=== PATIENT | female | born 1970 | race Caucasian/White ===

== ENCOUNTER 2017-02-20 06:06 | Emergency (ER) | payer OTHER ==
[~2017-02-20] VITALS: Ht 167.6 cm; Wt 59.0 kg
--- NOTE | 2017-02-20 06:41 | ED SKIN/ALLERGY COMPLAINT ---
History of Present Illness General Chief Complaint: Allergy Symptoms Stated Complaint: ?ALLERGIC REACTION, FACIAL SWELLING Source: patient Exam Limitations: no limitations Vital Signs & Intake/Output Vital Signs & Intake/Output Vital Signs Date Time Temp Pulse Resp B/P B/P Pulse O2 O2 Flow FiO2 Mean Ox Delivery Rate 02/20 0619 99.0 71 18 132/63 99 Room Air Reconcile Medications Famotidine (Pepcid) 20 MG TABLET 1 TAB PO BID URTICARIA Methylprednisolone. (Medrol) 4 MG TAB.DS.PK 1 DP PO AD URTICARIA 6 on day 1 then reduce by one tablet daily until gone Triage Note: PT TO ED WITH COMPLAINTS OF SWELLING TO FACE AND ITCHINESS TO BLE, BUE AND ABDOMEN. PT'S SKIN NOTED TO HAVE RED BLOTCHY AREAS. PT DENIES EATING ANY NEW FOODS OR USING NEW LOTIONS/PERFUMES. PT STATES NEW B12 VITAMINS THAT SHE STARTED 3 WEEKS AGO. Triage Nurses Notes Reviewed? yes Onset: Abrupt Duration: LAST NIGHT Timing: multiple episodes today Severity: mild, moderate Location: generalized Possible Factors: ? POSSIBLE FOOD EXPOSURE No Modifying Factors: none Associated Symptoms: hives HPI: 47-year-old female presents to the ER with chief complaint of itching and rash that started yesterday evening. She was swimming in her in-laws pool yesterday. She ate multiple foods yesterday nothing that she is allergic to. Denies any recent change in products. She has been on high-dose vitamin B12 for the past 3 weeks secondary to neuropathy. Denies any insect bites. No shortness of breath or swallowing difficulties. Past History Travel History Traveled to [place] past 21 day No Medical History Any Pertinent Medical History? see below for history Other Medical Hx: LOW B12 Surgical History Surgical History: non-contributory Psychosocial History What is your primary language Andorran Tobacco Use: Current Daily Use Daily Tobacco Use Amount/Type: => 5 Cigarettes daily ETOH Use: occasional use Illicit Drug Use: denies illicit drug use Family History Hx Contributory? No Review of Systems Review of Systems Constitutional: Denies: chills, fever. EENTM: Reports: no symptoms. Respiratory: Denies: cough, short of breath, wheezing. Cardiovascular: Denies: chest pain. GI: Denies: nausea, vomiting. Genitourinary: Reports: no symptoms. Musculoskeletal: Reports: no symptoms. Skin: Reports: jaundice, rash. Neurological/Psychological: Reports: anxiety. Hematologic/Endocrine: Denies: bruising, bleeding. Immunologic/Allergic: Reports: no symptoms. All Other Systems: Reviewed and Negative Physical Exam Physical Exam General Appearance: alert, awake, anxious, mild distress, thin Head: atraumatic, normal appearance Eyes: Bilateral: normal appearance, PERRL, EOMI. Ears, Nose, Throat: normal pharynx, normal ENT inspection, hearing grossly normal Neck: normal inspection, supple, full range of motion Respiratory: normal breath sounds, chest non-tender, no respiratory distress Cardiovascular: regular rate/rhythm Peripheral Pulses: 2+ radial (R), 2+ radial (L) Gastrointestinal: normal bowel sounds, soft, non-tender Extremities: normal inspection, normal capillary refill, normal range of motion, no edema Neurologic/Psych: no motor/sensory deficits, awake, alert, oriented x 3 Skin: intact, normal color, warm/dry, rash Skin Problem Location: generalized Skin Problem Character: urticarial Progress Differential Diagnosis: allergic reaction, urticaria Plan of Care: Current Medications Sig/Forest Start time Last Medication Dose Stop Time Status Admin Diphenhydramine HCl 50 MG ONCE ONE 02/20 0645 UNVr (Benadryl) 02/20 646 Famotidine 20 MG ONCE ONE 02/20 645 UNVr (Pepcid) 02/20 646 Prednisone 60 MG ONCE ONE 02/20 645 UNVr 02/20 646 Departure Departure Disposition: HOME OR SELF CARE Condition: Stable Clinical Impression Primary Impression: Hives Referrals: PATIENT HAS NO PRIMARY CARE DR (PCP/Family) Additional Instructions: Take the prednisone and Pepcid as directed. Benadryl [id number] as needed. Please follow up with your doctor in the office. Departure Forms: Customer Survey General Discharge Information Prescriptions: Current Visit Scripts Methylprednisolone. (Medrol) 1 DP PO AD #1 DP 6 on day 1 then reduce by one tablet daily until gone Famotidine (Pepcid) 1 TAB PO BID #20 TAB
[2017-02-20] MEDS ORDERED: MEDROL4 M2 PO (07:09)
[2017-02-20] MEDS ORDERED: PEPCID20 M1 PO (07:09)
[2017-02-20 07:36] VITALS: BP 128/70
== END 2017-02-20 07:37 ==
LOC: ERH 06:06
DX: L50.9 Urticaria, unspecified (principal)